=== PATIENT | female | born 1985 | race Hispanic/Latino ===

== ENCOUNTER 2017-09-06 05:51 | Inpatient (IN) | payer OTHER ==
[2017-09-06] MEDS ORDERED: NORMOSOL-R PH 7.4 1,000 ML IV ONE ×2 (05:53→07:08)
[2017-09-06] MEDS ORDERED: ANCEF/STERILE WATER 2 GM/20 ML 2 GM/20 ML SYRINGE IV ONE (06:56)
[2017-09-06] MEDS ORDERED: PITOCin/NS 20 UNIT/1000ML DRIP 20,000 MILLIUNITS/1,000 ML BAG IV ONE ×2 (06:57→15:00)
[2017-09-06] MEDS ORDERED: PEPCID IV ONE (06:57)
[2017-09-06] MEDS ORDERED: BICITRA ONE (06:58)
[2017-09-06] MEDS ORDERED: REGLAN ONE (06:58)
[2017-09-06 07:28] LABS: Hematocrit 35.7 % (30.3-42.9); Mean Corpuscular HGB Conc 34 % (30-34); Mean Corpuscular Hemoglobin 31 pg (28-32); Mean Corpuscular Volume 92 fl (79-97); Platelet Count 293 K/mm3 (140-440); Red Blood Count 3.89 M/mm3 (3.65-5.03); Red Cell Distribution Width 13.9 % (13.2-15.2)
--- NOTE | 2017-09-06 07:31 | Anesthesia Consultation ---
Anesthesia Consult and Med Hx Date of service: 09/06/17 - Airway Anesthetic Teeth Evaluation: Good ROM Head & Neck: Adequate Mental/Hyoid Distance: Adequate Mallampati Class: Class III Intubation Access Assessment: Possibly Difficult - Pre-Operative Health Status ASA Pre-Surgery Classification: ASA2 Proposed Anesthetic Plan: Epidural, Spinal - Pulmonary Hx Asthma: No COPD: No Hx Pneumonia: No - Cardiovascular System Hx Hypertension: No - Central Nervous System Hx Seizures: No Hx Psychiatric Problems: No - Endocrine Hx Renal Disease: No Hx End Stage Renal Disease: No Hx Hypothyroidism: No Hx Hyperthyroidism: No - Hematic Hx Anemia: No Hx Sickle Cell Disease: No - Other Systems Hx Alcohol Use: No Hx Obesity: Yes (BMI 36.2)
--- NOTE | 2017-09-06 07:32 | Anesthesia Day of Surgery ---
Anesthesia Day of Surgery - Day of Surgery Patient Examined: Yes Patient H&P Reviewed: Yes Patient is NPO: Yes
--- NOTE | 2017-09-06 07:33 | History and Physical Report ---
History of Present Illness Date of examination: 09/06/17 Date of admission: 09/06/17 05:51 Chief complaint: I'm here for my History of present illness: Patient marvin 32 year old who presents for elective repeat with EDC 09/13/17. Her course was only complicated by late presentation to care. Past History Past Medical History: no pertinent history Past Surgical History: section Family/Genetic History: none - Obstetrical History Expected Date of Delivery: 09/13/17 Actual Gestation: 39 Week(s) 0 Day(s) : 3 Para: 2 Number of Living Children: 2 Medications and Allergies Allergies Allergy/AdvReac Type Severity Reaction Status Date / Time No Known Allergies Allergy Unverified 09/06/17 07:22 Review of Systems All systems: negative Gastrointestinal: abdominal pain - Vital Signs Vital signs: Vital Signs Pulse BP 110 H 124/83 09/06/17 06:13 09/06/17 06:13 Temp Pulse Resp BP Pulse Ox 98.2 F 110 H 18 124/83 09/06/17 06:38 09/06/17 06:13 09/06/17 06:38 09/06/17 06:13 - Physical Exam Breasts: Cardiovascular: Regular rate, Normal S1, Normal S2 Lungs: Positive: Clear to auscultation, Normal air movement Abdomen: Positive: normal appearance, soft, normal bowel sounds. Negative: distention, tenderness Genitourinary (Female): Positive: normal external genitalia, normal perenium Vulva: both: normal Vagina: Positive: normal moisture. Negative: discharge Cervix: Negative: lesion, discharge Uterus: Positive: normal size, normal contour Adnexa: both: normal Anus/Rectum: Positive: normal perianal skin, heme negative. Negative: rectal mass, hemorrhoids Extremities: Deep Tendon Reflex Grade: Normal +2 Results Result Diagrams: 09/06/17 06:20 Abnormal lab results 09/06/17 Range/Units 06:20 WBC 14.1 H (4.5-11.0) K/mm3 All other labs normal. Assessment and Plan IUP here for elective repeat . Admit for surgery. Consents signed and placed on chart.
[2017-09-06] MEDS ORDERED: ANCEF/STERILE WATER 2 GM/20 ML IV ONE (07:57)
[2017-09-06] MEDS ORDERED: PHENERGAN PR PRN (08:00)
[2017-09-06] MEDS ORDERED: PHENERGAN PO PRN (08:00)
[2017-09-06] MEDS ORDERED: ZOFRAN IV PRN ×2 (08:00→11:00)
[2017-09-06] MEDS ORDERED: TORADOL IV PRN (08:00)
[2017-09-06] MEDS ORDERED: SODIUM CHLORIDE FLUSH SYRINGE 10 ML IV PRN ×2 (08:00→11:00)
[2017-09-06] MEDS ORDERED: NARCAN 0.4 MG/1 ML IV PRN ×2 (08:00→11:00)
[2017-09-06] MEDS ORDERED: DILAUDID IV PRN (08:00)
[2017-09-06] MEDS ORDERED: WATER FOR IRRIG STERILE IR ONE (08:05)
[2017-09-06] MEDS ORDERED: NACL 0.9% IR ONE (08:05)
[2017-09-06] MEDS ORDERED: ASTRAMORPH PF 10MG/10ML ONE (08:31)
[2017-09-06] MEDS ORDERED: NEO SYNEPHRINE/NS Syringe(OR USE) IV ONE ×2 (08:38→11:00)
[2017-09-06] MEDS ORDERED: XYLOCAINE MPF 2% ONE ×2 (08:54→11:00)
[2017-09-06] MEDS ORDERED: LACTATED RINGERS 1,000 ML ONE (08:58)
--- NOTE | 2017-09-06 09:09 | Procedure Note ---
OB Delivery Note - Delivery Date of Delivery: 09/06/17 Surgeon: KAMERON MACE Special Machine Stitcher: GERI POZO Estimated blood loss: other (800cc) - Section Preop diagnosis: repeat Postop diagnosis: same section procedure: repeat low transverse Disposition: PACU Complications: none Narrative: see op report - A at 1 minute: 8 at 5 minutes: 9 Infant Gender: Female (8 pounds 4 ounces)
[2017-09-06] MEDS ORDERED: MORPHINE IV PRN ×2 (10:38→11:30)
[2017-09-06] MEDS ORDERED: PITOCin/NS 20 UNIT/1000ML DRIP 20 UNITS/1,000 ML BAG IV SCH (11:00)
[2017-09-06] MEDS ORDERED: LANSINOH TP PRN (11:00)
[2017-09-06] MEDS ORDERED: D5LR 1,000 ML IV SCH (11:00)
[2017-09-06] MEDS ORDERED: TUCKS PAD TP PRN (11:00)
[2017-09-06] MEDS: PERCOCET 5/325 PO PRN ×2 (11:05→19:49)
[2017-09-06] MEDS ORDERED: MYLICON PO PRN (11:30)
--- NOTE | 2017-09-06 11:49 | Operative Report ---
Operative Report Operative Report: The operative report for patient Janice Peña Date of service 09/06/2017 Preoperative diagnosis: Intrauterine at 39 weeks 2. Previous 2 Postoperative diagnosis: Same Procedure: Repeat low transverse section Surgeon: Dr. Lorenza Gary EBL: 800 mL Urine output: 50 mL IV fluids: 1500 mL Findings: Viable female in the vertex occiput posterior position. Weight 8 lbs. 4 oz. 3754 g Apgars 9 and 9. Otherwise normal pelvic anatomy Specimens: None Complications: None Procedure: The patient was admitted to the OR with IV running and in place. She was properly identified as herself. Her spinal was placed in the OR without difficulty She was placed in the dorsal supine position with a leftward tilt. A Ardon catheter was inserted. She was then prepped and draped in the normal sterile fashion. An Allis test was used to confirm adequate anesthesia. Once confirmed, the incision was made with the scalpel and carried to the underlying fascia using the scalpel and the Bovie. The fascia was incised in the midline and incision was extended bilaterally using the curved Barry scissors. The fascia was then dissected from the underlying rectus muscles in a series of sharp and blunt dissection using the Barry scissors. Muscles were in the in the midline sharply using Metzenbaum scissors and the peritoneum was entered into bluntly using the surgeon's fingers. Adhesions from the uterus to the anterior abdominal wall were taken down with sharp and blunt dissection as well. A bladder blade was then placed into the incision to protect the bladder. Hysterotomy incision was then made with the scalpel. Upon uterine entry, the amniotic sac was ruptured for clear fluid. The infant was then delivered in the occiput posterior position. Her mouth and nose were suctioned on the field. The cord was clamped and cut and she was handed to the waiting NICU personnel. The uterus was then exteriorized and cleared of all clots and debris. The hysterotomy incision was then closed in a running locked fashion using 0 Vicryl. The abdomen was then copiously irrigated with warm normal saline. Following this the uterus was replaced into the abdominal cavity. At this point the muscles were reapproximated in the midline using individual sutures of 0 Vicryl. Following this the fascia was closed in a running fashion using 0 Vicryl. Tissue was then copiously irrigated. The Skin was closed in a running fashion using 3-0 Monocryl. The sponge lap needle and instrument counts were correct 2. The patient tolerated the procedure well. She was taken to recovery in stable condition.
[2017-09-06] MEDS: PRENATAL VITAMIN PO SCH (12:00)
[2017-09-06] MEDS: BENADRYL IV PRN ×2 (13:36→19:51)
[2017-09-06 20:31] LABS: Hematocrit 30.8 % (30.3-42.9); Hemoglobin 10.7 gm/dl (10.1-14.3)
[2017-09-07] MEDS: BENADRYL IV PRN (04:54)
[2017-09-07] MEDS: PERCOCET 5/325 PO PRN ×3 (08:33→20:37)
[2017-09-07] MEDS: MOTRIN PO PRN (20:38)
[2017-09-08 00:26] VITALS: BP 115/68
[2017-09-08] MEDS: PERCOCET 5/325 PO PRN ×2 (04:55→13:19)
[2017-09-08] MEDS: MOTRIN PO PRN ×2 (04:55→13:19)
--- NOTE | 2017-09-08 11:53 | Progress Note ---
Assessment and Plan PPD 2 s/p RLTCS. Doing well. Plan for discharge on today. Baby is still in NICU , but patient is requesting discharge Subjective - Subjective Date of service: 09/08/17 Interval history: Patient marvin 32 year old who presents for elective repeat with EDC 09/13/17. Her course was only complicated by late presentation to care. Patient reports: appetite normal, voiding normally, pain well controlled, ambulating normally : in NICU Objective - Vital Signs Latest vital signs: Vital Signs Temp Pulse Resp BP Pulse Ox 09/08/17 00:20 98.0 F 100 H 20 115/68 95 09/07/17 17:47 97.9 F 107 H 20 117/80 95 09/07/17 15:10 18 Intake and Output 09/07/17 09/08/17 09/08/17 22:59 06:59 14:59 Intake Total 720 360 Balance 720 360 Intake: Oral 600 360 Intake, Free Water 120 Other: Total, Intake Amount 240 240 # Voids Void 1 1 - Exam Breasts: Present: deferred Cardiovascular: Present: Regular rate, Normal S1, Normal S2 Lungs: Present: Clear to auscultation, Normal air movement Abdomen: Present: normal appearance, soft, normal bowel sounds Uterus: Present: normal, firm, fundal height below umbilicus Extremities: Present: normal Deep Tendon Reflex Grade: Normal +2 Incision: Present: normal, dry, intact
--- NOTE | 2017-09-08 11:54 | Discharge Summary ---
Providers - Providers Date of Admission: 09/06/17 05:51 Date of discharge: 09/08/17 Attending physician: KAMERON MACE Primary care physician: KAMERON MACE Hospitalization Reason for admission: section Delivery: Procedure: repeat low transverse Incision: normal, dry, intact Other procedures: none complications: none Discharge diagnosis: IUP at term delivered baby: female Hospital course: unremarkable Condition at discharge: Good Disposition: DC-01 TO HOME OR SELFCARE Plan - Discharge Medications Prescriptions: Docusate Sodium [Colace] 100 mg PO BID PRN #60 capsule PRN Reason: Constipation Ibuprofen [Motrin] 800 mg PO Q8HR PRN #40 tablet PRN Reason: Pain Oxycodone HCl/Acetaminophen [Percocet 7.5/325 mg] 1 each PO Q6HR PRN #40 tablet PRN Reason: Pain - Provider Discharge Summary Activity: routine, no sex for 6 weeks, no heavy lifting 4 weeks, no strenuous exercise Diet: routine Instructions: routine Additional instructions: [] Smoking cessation referral if applicable(refer to patient education folder for contact #) [] Refer to [facility] Booklet Call your doctor immediately for: * Fever > 100.5 * Heavy vaginal bleeding ( >1 pad per hour) * Severe persistent headache * Shortness of breath * Reddened, hot, painful area to leg or breast * Drainage or odor from incision. * Keep incision clean and dry at all times and follow doctor's instructions regarding bathing/showering - Follow up plan Follow up: KAMERON MACE MD [Primary Care Provider] - 14 Days
[2017-09-08] MEDS: PRENATAL VITAMIN PO SCH (13:19)
== END 2017-09-08 13:30 | disposition home or self-care (01) | DRG 766 ==
LOC: APU 05:51 → OB 10:24
PROVIDERS: ADMIT Obstetrics & Gynecology; ATTEND Obstetrics & Gynecology
PROC: 10D00Z1 Extraction of Products of Conception, Low, Open Approach (ICD-10-PCS; principal; 2017-09-06)
DX: O34.211 Maternal care for low transverse scar from previous cesarean delivery (principal); Z3A.39 39 weeks gestation of pregnancy; Z37.0 Single live birth; O99.214 Obesity complicating childbirth; E66.9 Obesity, unspecified; Z68.36 Body mass index [BMI] 36.0-36.9, adult
CPT/HCPCS: 36415; 85014; 85018; 85027; 86592; 86850; 86900; 86901; 99406; J0690; J1200; J2274; J2370; J2405; J2590; J2765; J7120; J7121